=== PATIENT | female | born 1990 | race Caucasian/White ===

== ENCOUNTER → 2016-11-25 | Outpatient (CLI) | payer OTHER ==
--- NOTE | 2016-11-25 20:09 | US ---
EXAMINATION TYPE: US OB >= 14 wk fetus DATE OF EXAM: 11/25/2016 4:38 PM COMPARISON: 09/13/2016 CLINICAL HISTORY: screening of mother TECHNIQUE: Transabdominal (TA) GESTATIONAL AGE / DATING Physician Established: (27 weeks/6 days) EDC: 02/18/2017 per pt Dates by LMP: (27 weeks/6 days) EDC: 02/18/2017 Dates by First Scan: (27 weeks/3 days) EDC: 02/19/2017 Dates by Current Scan: (28 weeks/3 days) EDC: 02/14/2017 SURVEY IUP: Single PLACENTA: Anterior PREVIA: No Previa DINORAH: 19.4 cm Normal CERVICAL LENGTH (transabdominal: norm > 3.0cm): 3.7 cm BIOMETRY PRESENTATION: Vertex LIE: Longitudinal BPD: 7.4 cm 29 weeks / 4 days HC: 26.3 cm 28 weeks / 5 days AC: 24.5 cm 28 weeks / 5 days FL: 5.4 cm 28 weeks / 4 days ESTIMATED WEIGHT IN GRAMS: 1275 grams ESTIMATED WEIGHT IN LBS/OZS: 2 lbs. 13 oz. WEIGHT PERCENTAGE BASED ON ESTABLISHED DATES: 72% HC/AC: 1.1 FL/AC: 22 HEART RATE: 153 bpm RHYTHM: Normal Complete anatomy survey not performed. IMPRESSION: viable 28 weeks 3 days with an EDC of 02/14/2017
== END | disposition home or self-care (01) ==
LOC: RADUSWWP 15:59
PROVIDERS: ATTEND Obstetrics & Gynecology
DX: Z36 Encounter for antenatal screening of mother (principal)
CPT/HCPCS: 76805

== ENCOUNTER 2018-02-07 15:42 | Emergency (ER) | payer OTHER ==
--- NOTE | 2018-02-07 16:21 | ED ---
General Adult HPI - General Chief complaint: Chest Pain Stated complaint: Chest Pain Time Seen by Provider: 02/07/18 15:59 Source: patient, RN notes reviewed, old records reviewed Mode of arrival: wheelchair Limitations: no limitations - History of Present Illness Initial comments: This is a 19-year-old female to the ER for evaluation of chest pain today. Severe chest pain left-sided that occurred while holding her children earlier today. Patient has no specific medical history. She states she does have a strong family history of heart disease including cardiomyopathy. Patient states herself has also been told that she's had abnormal echo, viral infection with her heart or bacterial infection of her heart at some point, and muscle similar heart catheterization. Patient denies fever. Denies cough. Denies shortness of breath. Patient states the pain is been episodic but currently worse over last day - Related Data Home Medications Medication Instructions Recorded Confirmed Pedi Multivit No.25/Folic Acid 300 mcg PO DAILY 07/29/16 02/07/18 [Flintstones Multivit Chew Tab] Previous Rx's Medication Instructions Recorded Naproxen [Naprosyn] 500 mg PO Q12HR #30 tab 02/07/18 Allergies Allergy/AdvReac Type Severity Reaction Status Date / Time Penicillins Allergy Anaphylaxis Verified 02/07/18 16:08 Review of Systems ROS Statement: Those systems with pertinent positive or pertinent negative responses have been documented in the HPI. ROS Other: All systems not noted in ROS Statement are negative. Past Medical History Additional Past Medical History / Comment(s): IBS History of Any Multi-Drug Resistant Organisms: None Reported Past Surgical History: Section Additional Past Surgical History / Comment(s): IBS Past Psychological History: No Psychological Hx Reported Smoking Status: Current every day smoker Past Alcohol Use History: Rare Past Drug Use History: None Reported - Past Family History Sister(s) Additional Family Medical History / Comment(s): Sister with a history of hypertrophic cardiomyopathy General Exam Limitations: no limitations General appearance: alert, in no apparent distress Head exam: Present: atraumatic, normocephalic, normal inspection Eye exam: Present: normal appearance, PERRL, EOMI. Absent: scleral icterus, conjunctival injection, periorbital swelling ENT exam: Present: normal exam, mucous membranes moist Neck exam: Present: normal inspection. Absent: tenderness, meningismus, lymphadenopathy Respiratory exam: Present: normal lung sounds bilaterally. Absent: respiratory distress, wheezes, rales, rhonchi, stridor Cardiovascular Exam: Present: regular rate, normal rhythm, normal heart sounds. Absent: systolic murmur, diastolic murmur, rubs, gallop, clicks GI/Abdominal exam: Present: soft, normal bowel sounds. Absent: distended, tenderness, guarding, rebound, rigid Extremities exam: Present: normal inspection, full ROM, normal capillary refill. Absent: tenderness, pedal edema, joint swelling, calf tenderness Back exam: Present: normal inspection Neurological exam: Present: alert, oriented X3, CN II-XII intact Psychiatric exam: Present: normal affect, normal mood Skin exam: Present: warm, dry, intact, normal color. Absent: rash Course Vital Signs 02/07/18 02/07/18 02/07/18 15:54 16:33 18:14 Temperature 98.3 F 97.2 F L Pulse Rate 92 77 79 Respiratory 20 18 18 Rate Blood Pressure 124/72 133/73 113/61 O2 Sat by Pulse 99 100 99 Oximetry - Reevaluation(s) Reevaluation #1: Nonspecific chest pain is resolved EKG Findings - EKG Comments: EKG Findings:: EKG shows normal sinus rhythm rate of 81, NE 144, QRS 78, QTC 418 Medical Decision Making - Medical Decision Making 19 female the ER for evasive chest pain, patient is CT chest negative. Patient has normal EKG and normal troponin. Low risk heart disease. Patient can be discharged home - Lab Data Result diagrams: 02/07/18 16:46 02/07/18 16:46 Lab Results 02/07/18 02/07/18 02/07/18 Range/Units 16:46 16:46 16:46 WBC 8.9 (3.8-10.6) k/uL RBC 4.68 (3.80-5.40) m/uL Hgb 12.7 (11.4-16.0) gm/dL Hct 39.3 (34.0-46.0) % MCV 84.0 (80.0-100.0) fL MCH 27.2 (25.0-35.0) pg MCHC 32.4 (31.0-37.0) g/dL RDW 14.8 (11.5-15.5) % Plt Count 378 (150-450) k/uL Neutrophils % 65 % Lymphocytes % 22 % Monocytes % 7 % Eosinophils % 3 % Basophils % 1 % Neutrophils # 5.8 (1.3-7.7) k/uL Lymphocytes # 2.0 (1.0-4.8) k/uL Monocytes # 0.7 (0-1.0) k/uL Eosinophils # 0.2 (0-0.7) k/uL Basophils # 0.1 (0-0.2) k/uL PT (9.0-12.0) sec INR (<1.2) APTT (22.0-30.0) sec D-Dimer (<0.60) mg/L FEU Sodium 140 (137-145) mmol/L Potassium 4.3 (3.5-5.1) mmol/L Chloride 106 (98-107) mmol/L Carbon Dioxide 24 (22-30) mmol/L Anion Gap 10 mmol/L BUN 8 (7-17) mg/dL Creatinine 0.64 (0.52-1.04) mg/dL Est GFR (CKD-EPI)AfAm >90 (>60 ml/min/1.73 sqM) Est GFR (CKD-EPI)NonAf >90 (>60 ml/min/1.73 sqM) Glucose 85 (74-99) mg/dL Calcium 9.5 (8.4-10.2) mg/dL Magnesium 2.0 (1.6-2.3) mg/dL Total Bilirubin 0.4 (0.2-1.3) mg/dL AST 22 (14-36) U/L ALT 27 (9-52) U/L Alkaline Phosphatase 74 (38-126) U/L Total Creatine Kinase 61 (30-135) U/L CK-MB (CK-2) 0.3 (0.0-2.4) ng/mL CK-MB (CK-2) Rel Index 0.5 Troponin I <0.012 (0.000-0.034) ng/mL NT-Pro-B Natriuret Pep pg/mL Total Protein 7.5 (6.3-8.2) g/dL Albumin 4.4 (3.5-5.0) g/dL Lipase 87 (23-300) U/L 02/07/18 02/07/18 Range/Units 16:46 16:46 WBC (3.8-10.6) k/uL RBC (3.80-5.40) m/uL Hgb (11.4-16.0) gm/dL Hct (34.0-46.0) % MCV (80.0-100.0) fL MCH (25.0-35.0) pg MCHC (31.0-37.0) g/dL RDW (11.5-15.5) % Plt Count (150-450) k/uL Neutrophils % % Lymphocytes % % Monocytes % % Eosinophils % % Basophils % % Neutrophils # (1.3-7.7) k/uL Lymphocytes # (1.0-4.8) k/uL Monocytes # (0-1.0) k/uL Eosinophils # (0-0.7) k/uL Basophils # (0-0.2) k/uL PT 10.4 (9.0-12.0) sec INR 1.1 (<1.2) APTT 22.9 (22.0-30.0) sec D-Dimer 0.30 (<0.60) mg/L FEU Sodium (137-145) mmol/L Potassium (3.5-5.1) mmol/L Chloride (98-107) mmol/L Carbon Dioxide (22-30) mmol/L Anion Gap mmol/L BUN (7-17) mg/dL Creatinine (0.52-1.04) mg/dL Est GFR (CKD-EPI)AfAm (>60 ml/min/1.73 sqM) Est GFR (CKD-EPI)NonAf (>60 ml/min/1.73 sqM) Glucose (74-99) mg/dL Calcium (8.4-10.2) mg/dL Magnesium (1.6-2.3) mg/dL Total Bilirubin (0.2-1.3) mg/dL AST (14-36) U/L ALT (9-52) U/L Alkaline Phosphatase (38-126) U/L Total Creatine Kinase (30-135) U/L CK-MB (CK-2) (0.0-2.4) ng/mL CK-MB (CK-2) Rel Index Troponin I (0.000-0.034) ng/mL NT-Pro-B Natriuret Pep 11 pg/mL Total Protein (6.3-8.2) g/dL Albumin (3.5-5.0) g/dL Lipase (23-300) U/L - Radiology Data Radiology results: report reviewed (CTA chest negative for acute disease), image reviewed Disposition Clinical Impression: Chest pain Disposition: HOME SELF-CARE Condition: Good Instructions: Chest Pain (ED) Prescriptions: Naproxen [Naprosyn] 500 mg PO Q12HR #30 tab Referrals: Natalia Busch MD [Primary Care Provider] - 1-2 days
--- NOTE | 2018-02-07 16:21 | XR ---
EXAMINATION TYPE: XR chest 2V DATE OF EXAM: 02/07/2018 COMPARISON: Prior chest x-ray 02/12/2016 HISTORY: Chest pain TECHNIQUE: Frontal and lateral views of the chest are obtained. FINDINGS: There is no focal air space opacity, pleural effusion, or pneumothorax seen. The cardiac silhouette size is within normal limits. There is a slight spinal curvature. The osseous structures are intact. IMPRESSION: No acute cardiopulmonary process.
[2018-02-07] MEDS ORDERED: KETOROLAC 30 MG/ML 1 ML VIAL IVP STA (16:31)
[2018-02-07] MEDS ORDERED: SODIUM CHLORIDE 0.9% 1,000 ML IV STA (16:31)
[2018-02-07] MEDS ORDERED: RX INFO: IV CONTRAST WAS GIVEN 1 EACH MISC MISCELLANE PRN (16:31)
[2018-02-07] MEDS ORDERED: SODIUM CHLORIDE 0.9% 500 ML IV STA (16:31)
[2018-02-07 16:35] VITALS: RESP 18
[2018-02-07 16:58] LABS: Basophils # (A) 0.1 k/uL (0-0.2); Basophils % (A) 1 %; Eosinophils # (A) 0.2 k/uL (0-0.7); Eosinophils % (A) 3 %; HCT 39.3 % (34.0-46.0); HGB 12.7 gm/dL (11.4-16.0); Lymphocytes % (A) 22 %; MCH 27.2 pg (25.0-35.0); MCHC 32.4 g/dL (31.0-37.0); Mean Platelet Volume 7.2; Monocytes # (A) 0.7 k/uL (0-1.0); Monocytes % (A) 7 %; Neutrophils # (A) 5.8 k/uL (1.3-7.7); Neutrophils % (A) 65 %; Platelet Count 378 k/uL (150-450); RBC 4.68 m/uL (3.80-5.40); RDW 14.8 % (11.5-15.5); WBC 8.9 k/uL (3.8-10.6)
[2018-02-07 17:03] LABS: D-Dimer 0.3 mg/L FEU (<0.60)
[2018-02-07 17:07] LABS: INR 1.1 (<1.2); Partial Thromboplastin Time 22.9 sec (22.0-30.0); Prothrombin Time 10.4 sec (9.0-12.0)
[2018-02-07 17:14] LABS: Creatine Kinase 61 U/L (30-135)
[2018-02-07 17:17] LABS: ALT 27 U/L (9-52); AST 22 U/L (14-36); Albumin 4.4 g/dL (3.5-5.0); Alkaline Phosphatase 74 U/L (38-126); Anion Gap 10 mmol/L; Blood Urea Nitrogen 8 mg/dL (7-17); Calcium 9.5 mg/dL (8.4-10.2); Carbon Dioxide 24 mmol/L (22-30); Chloride 106 mmol/L (98-107); Glucose 85 mg/dL (74-99); Lipase 87 U/L (23-300); Potassium 4.3 mmol/L (3.5-5.1); Sodium 140 mmol/L (137-145); Total Bilirubin 0.4 mg/dL (0.2-1.3); Total Protein 7.5 g/dL (6.3-8.2)
[2018-02-07 17:27] LABS: Creatine Kinase MB 0.3 ng/mL (0.0-2.4); Troponin I <0.012 ng/mL (0.000-0.034)
--- NOTE | 2018-02-07 17:55 | CT ---
EXAMINATION TYPE: CT angio chest DATE OF EXAM: 02/07/2018 COMPARISON: NONE HISTORY: Chest pain CT DLP: 419.3 mGycm. Automated Exposure Control for Dose Reduction was Utilized. CONTRAST: CTA scan of the thorax is performed with IV Contrast, patient injected with 63 mL of Omnipaque 350, p ulmonary embolism protocol. MIP Images are created on CT scanner and reviewed. FINDINGS: LUNGS: There is dependent subsegmental atelectasis seen bilaterally. The lungs are grossly clear, the re is no concerning parenchymal mass or nodule identified. There is no pleural effusion or pneumoth orax seen. The tracheobronchial tree is patent. MEDIASTINUM: There is satisfactory enhancement of the pulmonary artery and its branches, there is no CT evidence for pulmonary embolism. There are no greater than 1 cm hilar or mediastinal lymph nodes. No cardiomegaly or pericardial effusion is seen. IMPRESSION: 1. No evidence of pulmonary embolus. 2. No focal airspace disease to suggest pneumonia. 3. Dependent subsegmental atelectasis.
[2018-02-07 18:15] VITALS: BP 113/61; PULSE 79; TEMP 97.2
== END 2018-02-07 18:15 | disposition home or self-care (01) ==
LOC: EC 15:42
DX: R07.9 Chest pain, unspecified (principal); F17.200 Nicotine dependence, unspecified, uncomplicated; Z88.0 Allergy status to penicillin
CPT/HCPCS: 36415; 93005; 85379; 83880; 80053; 82550; 82553; 83690; 83735; 84484; 85025; 85610; 85730; 71046; 71275; 99285; 96374; 96361; Q9967; J1885

== ENCOUNTER 2018-06-07 15:25 | Emergency (ER) | payer OTHER ==
[2018-06-07 15:40] VITALS: RESP 18
--- NOTE | 2018-06-07 15:58 | ED ---
General Adult HPI - General Chief complaint: Chest Pain Stated complaint: Chest pain Time Seen by Provider: 06/07/18 15:48 Source: patient, RN notes reviewed, old records reviewed Mode of arrival: ambulatory Limitations: no limitations - History of Present Illness Initial comments: 28 female presenting for evaluation of chest pain. Patient has left-sided chest pain which she describes as heaviness accompanied by intermittent sharp chest pain to her left shoulder and left arm. Patient states her symptoms have been ongoing for the past 10 years. She's been seen by her primary care physician and seen in the emergency department on multiple occasions. She was recently told by her primary care physician that if her symptoms worsen to come to the emergency department. She has remote "infection around her heart" when she was 17 years old. She states her symptoms have been present since this time. Denies dyspnea. Denies fever or chills. No abdominal pain, no nausea vomiting or diarrhea. Patient has baseline chest pain at all times with intermittent episodes of worsening. - Related Data Home Medications Medication Instructions Recorded Confirmed Ibuprofen [Motrin Ib] 400 mg PO Q6H PRN 06/07/18 06/07/18 Allergies Allergy/AdvReac Type Severity Reaction Status Date / Time Penicillins Allergy Anaphylaxis Verified 06/07/18 16:16 Review of Systems ROS Statement: Those systems with pertinent positive or pertinent negative responses have been documented in the HPI. ROS Other: All systems not noted in ROS Statement are negative. Past Medical History Additional Past Medical History / Comment(s): IBS History of Any Multi-Drug Resistant Organisms: None Reported Past Surgical History: Section Additional Past Surgical History / Comment(s): IBS Past Psychological History: No Psychological Hx Reported Smoking Status: Current every day smoker Past Alcohol Use History: Occasional Past Drug Use History: None Reported - Past Family History Sister(s) Additional Family Medical History / Comment(s): Sister with a history of hypertrophic cardiomyopathy General Exam Limitations: no limitations General appearance: alert, in no apparent distress Head exam: Present: atraumatic, normocephalic Eye exam: Present: normal appearance, PERRL, EOMI ENT exam: Present: normal exam Neck exam: Present: normal inspection. Absent: tenderness, meningismus Respiratory exam: Present: normal lung sounds bilaterally. Absent: respiratory distress Cardiovascular Exam: Present: regular rate, normal rhythm GI/Abdominal exam: Present: soft. Absent: distended, tenderness Extremities exam: Present: normal inspection, normal capillary refill, other ( Distal pulses intact). Absent: pedal edema, calf tenderness Neurological exam: Present: alert, oriented X3, CN II-XII intact. Absent: motor sensory deficit Psychiatric exam: Present: normal affect, normal mood Skin exam: Present: warm, dry, intact. Absent: cyanosis, diaphoretic Course Vital Signs 06/07/18 15:38 Temperature 98.5 F Pulse Rate 92 Respiratory 18 Rate Blood Pressure 106/66 O2 Sat by Pulse 100 Oximetry EKG Findings - EKG Comments: EKG Findings:: EKG normal sinus rhythm, cannot rule out anterior infarct age undetermined, rate of 87, NC interval 136, QRS duration 72, QTC 440 Medical Decision Making - Medical Decision Making 28-year-old female with baseline chest pain presents for evaluation. This is a chronic issue she's had these symptoms for the past 11 years. EKG shows no acute signs of ischemia, chest x-ray is obtained which is negative for acute cardiopulmonary disease. Patient follows with her primary care physician. CBC CMP are unremarkable. D-dimer and troponin are negative. Patient is given outpatient cardiology follow-up given the duration of her symptoms. She will follow-up as soon as possible and return with worsening or changing symptoms. - Lab Data Result diagrams: 06/07/18 16:00 06/07/18 16:00 Lab Results 06/07/18 06/07/18 06/07/18 Range/Units 16:00 16:00 16:00 WBC 7.7 (3.8-10.6) k/uL RBC 4.28 (3.80-5.40) m/uL Hgb 11.2 L (11.4-16.0) gm/dL Hct 35.2 (34.0-46.0) % MCV 82.2 (80.0-100.0) fL MCH 26.1 (25.0-35.0) pg MCHC 31.7 (31.0-37.0) g/dL RDW 15.6 H (11.5-15.5) % Plt Count 270 (150-450) k/uL Neutrophils % 62 % Lymphocytes % 24 % Monocytes % 9 % Eosinophils % 2 % Basophils % 0 % Neutrophils # 4.7 (1.3-7.7) k/uL Lymphocytes # 1.9 (1.0-4.8) k/uL Monocytes # 0.7 (0-1.0) k/uL Eosinophils # 0.2 (0-0.7) k/uL Basophils # 0.0 (0-0.2) k/uL PT (9.0-12.0) sec INR (<1.2) APTT (22.0-30.0) sec D-Dimer (<0.60) mg/L FEU Sodium 138 (137-145) mmol/L Potassium 4.0 (3.5-5.1) mmol/L Chloride 108 H (98-107) mmol/L Carbon Dioxide 23 (22-30) mmol/L Anion Gap 7 mmol/L BUN 11 (7-17) mg/dL Creatinine 0.83 (0.52-1.04) mg/dL Est GFR (CKD-EPI)AfAm >90 (>60 ml/min/1.73 sqM) Est GFR (CKD-EPI)NonAf >90 (>60 ml/min/1.73 sqM) Glucose 86 (74-99) mg/dL Calcium 8.8 (8.4-10.2) mg/dL Magnesium 2.0 (1.6-2.3) mg/dL Total Bilirubin 0.2 (0.2-1.3) mg/dL AST 16 (14-36) U/L ALT 30 (9-52) U/L Alkaline Phosphatase 48 (38-126) U/L Total Creatine Kinase 89 (30-135) U/L CK-MB (CK-2) 0.4 (0.0-2.4) ng/mL CK-MB (CK-2) Rel Index 0.4 Troponin I <0.012 (0.000-0.034) ng/mL Total Protein 6.0 L (6.3-8.2) g/dL Albumin 3.8 (3.5-5.0) g/dL Urine Color Urine Appearance (Clear) Urine pH (5.0-8.0) Ur Specific [place] (1.001-1.035) Urine Protein (Negative) Urine Glucose (UA) (Negative) Urine Ketones (Negative) Urine Blood (Negative) Urine Nitrite (Negative) Urine Bilirubin (Negative) Urine Urobilinogen (<2.0) mg/dL Ur Leukocyte Esterase (Negative) Urine HCG, Qual (Not Detectd) 06/07/18 06/07/18 06/07/18 Range/Units 16:00 16:00 16:00 WBC (3.8-10.6) k/uL RBC (3.80-5.40) m/uL Hgb (11.4-16.0) gm/dL Hct (34.0-46.0) % MCV (80.0-100.0) fL MCH (25.0-35.0) pg MCHC (31.0-37.0) g/dL RDW (11.5-15.5) % Plt Count (150-450) k/uL Neutrophils % % Lymphocytes % % Monocytes % % Eosinophils % % Basophils % % Neutrophils # (1.3-7.7) k/uL Lymphocytes # (1.0-4.8) k/uL Monocytes # (0-1.0) k/uL Eosinophils # (0-0.7) k/uL Basophils # (0-0.2) k/uL PT 10.8 (9.0-12.0) sec INR 1.1 (<1.2) APTT 22.6 (22.0-30.0) sec D-Dimer 0.39 (<0.60) mg/L FEU Sodium (137-145) mmol/L Potassium (3.5-5.1) mmol/L Chloride (98-107) mmol/L Carbon Dioxide (22-30) mmol/L Anion Gap mmol/L BUN (7-17) mg/dL Creatinine (0.52-1.04) mg/dL Est GFR (CKD-EPI)AfAm (>60 ml/min/1.73 sqM) Est GFR (CKD-EPI)NonAf (>60 ml/min/1.73 sqM) Glucose (74-99) mg/dL Calcium (8.4-10.2) mg/dL Magnesium (1.6-2.3) mg/dL Total Bilirubin (0.2-1.3) mg/dL AST (14-36) U/L ALT (9-52) U/L Alkaline Phosphatase (38-126) U/L Total Creatine Kinase (30-135) U/L CK-MB (CK-2) (0.0-2.4) ng/mL CK-MB (CK-2) Rel Index Troponin I (0.000-0.034) ng/mL Total Protein (6.3-8.2) g/dL Albumin (3.5-5.0) g/dL Urine Color Yellow Urine Appearance Clear (Clear) Urine pH 6.5 (5.0-8.0) Ur Specific [place] 1.012 (1.001-1.035) Urine Protein Negative (Negative) Urine Glucose (UA) Negative (Negative) Urine Ketones Negative (Negative) Urine Blood Negative (Negative) Urine Nitrite Negative (Negative) Urine Bilirubin Negative (Negative) Urine Urobilinogen <2.0 (<2.0) mg/dL Ur Leukocyte Esterase Negative (Negative) Urine HCG, Qual Not Detected (Not Detectd) Disposition Clinical Impression: Chest pain Disposition: HOME SELF-CARE Condition: Good Instructions: Chest Pain (ED) Is patient prescribed a controlled substance at d/c from ED?: No Referrals: Natalia Busch MD [Primary Care Provider] - 1-2 days Kendall Ferro MD [STAFF PHYSICIAN] - 1-2 days Time of Disposition: 17:16
[2018-06-07 16:23] LABS: Appearance,Urine Clear (Clear); Basophils % (A) 0 %; Bilirubin,Urine Negative (Negative); Blood,Urine Negative (Negative); Color,Urine Yellow; Eosinophils # (A) 0.2 k/uL (0-0.7); Eosinophils % (A) 2 %; Glucose,Urine (UA) Negative (Negative); HCT 35.2 % (34.0-46.0); HGB 11.2 gm/dL (11.4-16.0); Ketones,Urine Negative (Negative); Leukocyte Esterase,Urine Negative (Negative); Lymphocytes # (A) 1.9 k/uL (1.0-4.8); Lymphocytes % (A) 24 %; MCH 26.1 pg (25.0-35.0); MCHC 31.7 g/dL (31.0-37.0); MCV 82.2 fL (80.0-100.0); Mean Platelet Volume 7.6; Monocytes # (A) 0.7 k/uL (0-1.0); Monocytes % (A) 9 %; Neutrophils # (A) 4.7 k/uL (1.3-7.7); Neutrophils % (A) 62 %; Nitrite,Urine Negative (Negative); PH, Urine 6.5 (5.0-8.0); Platelet Count 270 k/uL (150-450); Protein,Urine Negative (Negative); RBC 4.28 m/uL (3.80-5.40); RDW 15.6 % (11.5-15.5); Specific Gravity,Urine 1.012 (1.001-1.035); Urobilinogen,Urine <2.0 mg/dL (<2.0); WBC 7.7 k/uL (3.8-10.6)
[2018-06-07 16:34] LABS: ALT 30 U/L (9-52); AST 16 U/L (14-36); Albumin 3.8 g/dL (3.5-5.0); Alkaline Phosphatase 48 U/L (38-126); Anion Gap 7 mmol/L; Blood Urea Nitrogen 11 mg/dL (7-17); Calcium 8.8 mg/dL (8.4-10.2); Carbon Dioxide 23 mmol/L (22-30); Chloride 108 mmol/L (98-107); Glucose 86 mg/dL (74-99); Sodium 138 mmol/L (137-145); Total Bilirubin 0.2 mg/dL (0.2-1.3)
--- NOTE | 2018-06-07 16:34 | XR ---
EXAMINATION TYPE: XR chest 2V DATE OF EXAM: 06/07/2018 COMPARISON: Chest x-ray and CTA chest February 07, 2018 HISTORY: Intermittent chest pain worse today. TECHNIQUE: Frontal and lateral views of the chest are obtained. FINDINGS: There is no focal air space opacity, pleural effusion, or pneumothorax seen. The cardiac silhouette size is within normal limits. Slight scoliotic curvature is redemonstrated. IMPRESSION: No acute cardiopulmonary process. No significant change from prior studies.
[2018-06-07 16:39] LABS: D-Dimer 0.39 mg/L FEU (<0.60); INR 1.1 (<1.2); Partial Thromboplastin Time 22.6 sec (22.0-30.0); Prothrombin Time 10.8 sec (9.0-12.0)
[2018-06-07 16:50] LABS: Creatine Kinase 89 U/L (30-135)
[2018-06-07 17:03] LABS: Creatine Kinase MB 0.4 ng/mL (0.0-2.4); Troponin I <0.012 ng/mL (0.000-0.034)
[2018-06-07 18:03] VITALS: BP 109/58; PULSE 75; TEMP 97.6
== END 2018-06-07 18:03 | disposition home or self-care (01) ==
LOC: EC 15:25
DX: R07.9 Chest pain, unspecified (principal); F17.200 Nicotine dependence, unspecified, uncomplicated; Z88.0 Allergy status to penicillin
CPT/HCPCS: 36415; 71046; 80053; 81003; 81025; 82550; 82553; 83735; 84484; 85025; 85379; 85610; 85730; 93005; 99285

== ENCOUNTER 2018-11-25 17:24 | Emergency (ER) | payer OTHER ==
[2018-11-25] MEDS ORDERED: diphenhydrAMINE 50 MG/ML 1 ML VIAL IVP STA (17:50)
[2018-11-25] MEDS ORDERED: KETOROLAC 30 MG/ML 1 ML VIAL IVP STA (17:50)
[2018-11-25] MEDS ORDERED: ONDANSETRON 4 MG/2 ML VIAL IVP STA (17:50)
[2018-11-25] MEDS ORDERED: SODIUM CHLORIDE 0.9% 1,000 ML IV STA (17:50)
[2018-11-25] MEDS ORDERED: PANTOPRAZOLE 40 MG/10 ML VIAL IVP STA (17:50)
[2018-11-25 18:53] VITALS: RESP 16
[2018-11-25 19:04] LABS: Basophils % (A) 0 %; Eosinophils # (A) 0.1 k/uL (0-0.7); Eosinophils % (A) 2 %; HCT 34.8 % (34.0-46.0); HGB 10.9 gm/dL (11.4-16.0); Hypochromasia Slight; Lymphocytes # (A) 1.3 k/uL (1.0-4.8); Lymphocytes % (A) 24 %; MCH 26.1 pg (25.0-35.0); MCHC 31.2 g/dL (31.0-37.0); MCV 83.7 fL (80.0-100.0); Mean Platelet Volume 6.9; Monocytes # (A) 0.5 k/uL (0-1.0); Monocytes % (A) 8 %; Neutrophils # (A) 3.5 k/uL (1.3-7.7); Neutrophils % (A) 62 %; Platelet Count 285 k/uL (150-450); RBC 4.16 m/uL (3.80-5.40); RDW 15.6 % (11.5-15.5); WBC 5.7 k/uL (3.8-10.6)
--- NOTE | 2018-11-25 19:11 | ED ---
Nausea/Vomiting/Diarrhea HPI - General Chief complaint: Nausea/Vomiting/Diarrhea Stated complaint: NVD Time Seen by Provider: 11/25/18 17:41 Source: patient, RN notes reviewed Mode of arrival: ambulatory Limitations: no limitations - History of Present Illness Initial comments: 28-year-old female presents emergency Department chief complaint of not feeling well. Patient states that she has had some cold-like symptoms along with nausea vomiting. Patient complains of some mild abdominal discomfort primarily in her flank region. Patient denies any known fever but states that she's felt like she's had a fever at home. Patient denies any dysuria or hematuria. Denies any chance of . Patient states she's had slight nasal congestion she's had sick contacts with some her symptoms. - Related Data Home Medications Medication Instructions Recorded Confirmed Ibuprofen [Motrin Ib] 400 mg PO Q6H PRN 06/07/18 11/25/18 Previous Rx's Medication Instructions Recorded Ondansetron Odt [Zofran Odt] 4 mg PO Q8HR PRN #10 tab 11/25/18 Allergies Allergy/AdvReac Type Severity Reaction Status Date / Time Penicillins Allergy Anaphylaxis Verified 11/25/18 17:47 Review of Systems ROS Statement: Those systems with pertinent positive or pertinent negative responses have been documented in the HPI. ROS Other: All systems not noted in ROS Statement are negative. Past Medical History Additional Past Medical History / Comment(s): IBS History of Any Multi-Drug Resistant Organisms: None Reported Past Surgical History: Section Additional Past Surgical History / Comment(s): IBS Past Psychological History: No Psychological Hx Reported Smoking Status: Current every day smoker Past Alcohol Use History: Occasional Past Drug Use History: None Reported - Past Family History Sister(s) Additional Family Medical History / Comment(s): Sister with a history of hypertrophic cardiomyopathy General Exam Limitations: no limitations General appearance: alert, in no apparent distress Head exam: Present: atraumatic, normocephalic, normal inspection Eye exam: Present: normal appearance, PERRL, EOMI. Absent: scleral icterus, conjunctival injection, periorbital swelling ENT exam: Present: normal exam, normal oropharynx, mucous membranes moist, TM's normal bilaterally Neck exam: Present: normal inspection, full ROM. Absent: tenderness, meningismus, lymphadenopathy Respiratory exam: Present: normal lung sounds bilaterally. Absent: respiratory distress, wheezes, rales, rhonchi, stridor Cardiovascular Exam: Present: regular rate, normal rhythm, normal heart sounds. Absent: systolic murmur, diastolic murmur, rubs, gallop, clicks GI/Abdominal exam: Present: soft, tenderness (Mild diffuse), normal bowel sounds. Absent: distended, guarding, rebound, rigid Back exam: Absent: CVA tenderness (R), CVA tenderness (L) Neurological exam: Present: alert, oriented X3, CN II-XII intact Skin exam: Present: warm, dry, intact, normal color. Absent: rash Course Vital Signs 11/25/18 11/25/18 17:33 18:51 Temperature 98.8 F Pulse Rate 98 82 Respiratory 18 16 Rate Blood Pressure 108/73 102/49 O2 Sat by Pulse 99 100 Oximetry Medical Decision Making - Medical Decision Making 19-year-old female presented from for multiple complaints. Patient lab work, urinalysis. Pending is unremarkable at this time she was hydrated given antiemetics and she does feel improved. Patient has viral syndrome. Patient will be discharged and return parameters were discussed. - Lab Data Result diagrams: 11/25/18 18:40 11/25/18 18:40 Lab Results 11/25/18 11/25/18 11/25/18 Range/Units 18:40 18:40 18:40 WBC 5.7 (3.8-10.6) k/uL RBC 4.16 (3.80-5.40) m/uL Hgb 10.9 L (11.4-16.0) gm/dL Hct 34.8 (34.0-46.0) % MCV 83.7 (80.0-100.0) fL MCH 26.1 (25.0-35.0) pg MCHC 31.2 (31.0-37.0) g/dL RDW 15.6 H (11.5-15.5) % Plt Count 285 (150-450) k/uL Neutrophils % 62 % Lymphocytes % 24 % Monocytes % 8 % Eosinophils % 2 % Basophils % 0 % Neutrophils # 3.5 (1.3-7.7) k/uL Lymphocytes # 1.3 (1.0-4.8) k/uL Monocytes # 0.5 (0-1.0) k/uL Eosinophils # 0.1 (0-0.7) k/uL Basophils # 0.0 (0-0.2) k/uL Hypochromasia Slight Sodium 138 (137-145) mmol/L Potassium 4.0 (3.5-5.1) mmol/L Chloride 109 H (98-107) mmol/L Carbon Dioxide 23 (22-30) mmol/L Anion Gap 6 mmol/L BUN 8 (7-17) mg/dL Creatinine 0.75 (0.52-1.04) mg/dL Est GFR (CKD-EPI)AfAm >90 (>60 ml/min/1.73 sqM) Est GFR (CKD-EPI)NonAf >90 (>60 ml/min/1.73 sqM) Glucose 97 (74-99) mg/dL Calcium 8.5 (8.4-10.2) mg/dL Total Bilirubin 0.3 (0.2-1.3) mg/dL AST 16 (14-36) U/L ALT 31 (9-52) U/L Alkaline Phosphatase 59 (38-126) U/L Total Protein 6.3 (6.3-8.2) g/dL Albumin 3.5 (3.5-5.0) g/dL Amylase 55 (30-110) U/L Lipase 87 (23-300) U/L Urine Color Yellow Urine Appearance Cloudy H (Clear) Urine pH 6.0 (5.0-8.0) Ur Specific [place] 1.013 (1.001-1.035) Urine Protein Negative (Negative) Urine Glucose (UA) Negative (Negative) Urine Ketones Negative (Negative) Urine Blood Negative (Negative) Urine Nitrite Negative (Negative) Urine Bilirubin Negative (Negative) Urine Urobilinogen 2.0 (<2.0) mg/dL Ur Leukocyte Esterase Moderate H (Negative) Urine RBC 3 (0-5) /hpf Urine WBC 5 (0-5) /hpf Ur Squamous Epith Cells 14 H (0-4) /hpf Urine Mucus Few H (None) /hpf Urine HCG, Qual (Not Detectd) 11/25/18 Range/Units 18:40 WBC (3.8-10.6) k/uL RBC (3.80-5.40) m/uL Hgb (11.4-16.0) gm/dL Hct (34.0-46.0) % MCV (80.0-100.0) fL MCH (25.0-35.0) pg MCHC (31.0-37.0) g/dL RDW (11.5-15.5) % Plt Count (150-450) k/uL Neutrophils % % Lymphocytes % % Monocytes % % Eosinophils % % Basophils % % Neutrophils # (1.3-7.7) k/uL Lymphocytes # (1.0-4.8) k/uL Monocytes # (0-1.0) k/uL Eosinophils # (0-0.7) k/uL Basophils # (0-0.2) k/uL Hypochromasia Sodium (137-145) mmol/L Potassium (3.5-5.1) mmol/L Chloride (98-107) mmol/L Carbon Dioxide (22-30) mmol/L Anion Gap mmol/L BUN (7-17) mg/dL Creatinine (0.52-1.04) mg/dL Est GFR (CKD-EPI)AfAm (>60 ml/min/1.73 sqM) Est GFR (CKD-EPI)NonAf (>60 ml/min/1.73 sqM) Glucose (74-99) mg/dL Calcium (8.4-10.2) mg/dL Total Bilirubin (0.2-1.3) mg/dL AST (14-36) U/L ALT (9-52) U/L Alkaline Phosphatase (38-126) U/L Total Protein (6.3-8.2) g/dL Albumin (3.5-5.0) g/dL Amylase (30-110) U/L Lipase (23-300) U/L Urine Color Urine Appearance (Clear) Urine pH (5.0-8.0) Ur Specific [place] (1.001-1.035) Urine Protein (Negative) Urine Glucose (UA) (Negative) Urine Ketones (Negative) Urine Blood (Negative) Urine Nitrite (Negative) Urine Bilirubin (Negative) Urine Urobilinogen (<2.0) mg/dL Ur Leukocyte Esterase (Negative) Urine RBC (0-5) /hpf Urine WBC (0-5) /hpf Ur Squamous Epith Cells (0-4) /hpf Urine Mucus (None) /hpf Urine HCG, Qual Not Detected (Not Detectd) Disposition Clinical Impression: Nausea vomiting and diarrhea, Viral syndrome Disposition: HOME SELF-CARE Condition: Stable Instructions: Acute Nausea and Vomiting (ED), Acute Diarrhea (ED) Additional Instructions: Please return to the Emergency Department if symptoms worsen or any other concerns. Prescriptions: Ondansetron Odt [Zofran Odt] 4 mg PO Q8HR PRN #10 tab PRN Reason: Nausea Is patient prescribed a controlled substance at d/c from ED?: No Referrals: Natalia Busch MD [Primary Care Provider] - 1-2 days Time of Disposition: 19:36
[2018-11-25 19:12] LABS: Appearance,Urine Cloudy (Clear); Bilirubin,Urine Negative (Negative); Blood,Urine Negative (Negative); Color,Urine Yellow; Glucose,Urine (UA) Negative (Negative); Ketones,Urine Negative (Negative); Leukocyte Esterase,Urine Moderate (Negative); Mucus,Urine Few /hpf; Nitrite,Urine Negative (Negative); Protein,Urine Negative (Negative); RBC,Urine 3 /hpf (0-5); Specific Gravity,Urine 1.013 (1.001-1.035); Squamous Epithelial Cell,Urine 14 /hpf (0-4); WBC,Urine 5 /hpf (0-5)
[2018-11-25 19:14] LABS: ALT 31 U/L (9-52); AST 16 U/L (14-36); Albumin 3.5 g/dL (3.5-5.0); Alkaline Phosphatase 59 U/L (38-126); Amylase 55 U/L (30-110); Anion Gap 6 mmol/L; Blood Urea Nitrogen 8 mg/dL (7-17); Calcium 8.5 mg/dL (8.4-10.2); Carbon Dioxide 23 mmol/L (22-30); Chloride 109 mmol/L (98-107); Glucose 97 mg/dL (74-99); Lipase 87 U/L (23-300); Sodium 138 mmol/L (137-145); Total Bilirubin 0.3 mg/dL (0.2-1.3); Total Protein 6.3 g/dL (6.3-8.2)
[2018-11-25 20:00] VITALS: BP 100/59; PULSE 79; TEMP 98.9
== END 2018-11-25 19:57 | disposition home or self-care (01) ==
LOC: EC 17:24
DX: B34.9 Viral infection, unspecified (principal); F17.200 Nicotine dependence, unspecified, uncomplicated; Z87.19 Personal history of other diseases of the digestive system; Z88.0 Allergy status to penicillin
CPT/HCPCS: 99284 ×2; 96374 ×2; 96375 ×4; 96361 ×2; 36415; 80053; 82150; 83690; 85025; 81001; 81025; J1200; J2405; J1885; C9113

== ENCOUNTER 2019-02-26 11:41 | Emergency (ER) | payer OTHER ==
[2019-02-26] MEDS ORDERED: SODIUM CHLORIDE 0.9% 1,000 ML IV STA (12:35)
[2019-02-26 12:53] LABS: Anisocytosis Slight; Basophils % (A) 0 %; Eosinophils % (A) 1 %; HCT 36.2 % (34.0-46.0); HGB 11.9 gm/dL (11.4-16.0); Lymphocytes # (A) 0.9 k/uL (1.0-4.8); Lymphocytes % (A) 17 %; MCH 25.5 pg (25.0-35.0); MCHC 32.8 g/dL (31.0-37.0); MCV 77.7 fL (80.0-100.0); Microcytosis Slight; Monocytes # (A) 0.4 k/uL (0-1.0); Monocytes % (A) 7 %; Neutrophils # (A) 3.8 k/uL (1.3-7.7); Neutrophils % (A) 73 %; Platelet Count 225 k/uL (150-450); RBC 4.66 m/uL (3.80-5.40); RDW 16.4 % (11.5-15.5); WBC 5.2 k/uL (3.8-10.6)
[2019-02-26 12:59] LABS: Appearance,Urine Cloudy (Clear); Bacteria,Urine Rare /hpf; Bilirubin,Urine Negative (Negative); Blood,Urine Negative (Negative); Color,Urine Yellow; Glucose,Urine (UA) Negative (Negative); Ketones,Urine Negative (Negative); Leukocyte Esterase,Urine Moderate (Negative); Mucus,Urine Rare /hpf; Nitrite,Urine Negative (Negative); Protein,Urine Negative (Negative); RBC,Urine 1 /hpf (0-5); Specific Gravity,Urine 1.016 (1.001-1.035); Squamous Epithelial Cell,Urine 5 /hpf (0-4); WBC,Urine 3 /hpf (0-5)
[2019-02-26 13:03] LABS: ALT 23 U/L (9-52); AST 15 U/L (14-36); Alkaline Phosphatase 75 U/L (38-126); Amylase 56 U/L (30-110); Anion Gap 9 mmol/L; Blood Urea Nitrogen 7 mg/dL (7-17); Calcium 9.1 mg/dL (8.4-10.2); Carbon Dioxide 22 mmol/L (22-30); Chloride 106 mmol/L (98-107); Glucose 82 mg/dL (74-99); Lipase 67 U/L (23-300); Potassium 3.9 mmol/L (3.5-5.1); Sodium 137 mmol/L (137-145); Total Bilirubin 0.4 mg/dL (0.2-1.3); Total Protein 6.9 g/dL (6.3-8.2)
[2019-02-26] MEDS ORDERED: ONDANSETRON 4 MG/2 ML VIAL IVP STA (13:19)
--- NOTE | 2019-02-26 13:50 | ED ---
Abdominal Pain HPI - General Chief Complaint: Abdominal Pain Stated Complaint: rt sided abd pain Time Seen by Provider: 02/26/19 12:09 Source: patient, RN notes reviewed, old records reviewed Mode of arrival: ambulatory - History of Present Illness Initial Comments: This is a 28-year-old female the ER for evaluation. This patient presents today for evaluation regards to bowel pain. Right lower quadrant bowel pain. Patient has history of kidney stones concern for appendicitis today. Positive nausea vomiting no fevers. No dysuria no difficulty with bowel movements. No recent travel history no sick contacts no pharyngeal similar complaint. No prior surgical history MD Complaint: abdominal pain (RLQ) -: days(s) Location: RLQ, suprapubic Radiation: RLQ, suprapubic Migration to: RLQ Severity: mild Severity scale (1-10): 2 Quality: aching Consistency: constant Improves With: nothing Worsens With: nothing Associated Symptoms: nausea, vomiting - Related Data Home Medications Medication Instructions Recorded Confirmed Ibuprofen [Motrin Ib] 400 mg PO Q6H PRN 06/07/18 11/25/18 Previous Rx's Medication Instructions Recorded Ondansetron Odt [Zofran Odt] 4 mg PO Q8HR PRN #10 tab 11/25/18 Allergies Allergy/AdvReac Type Severity Reaction Status Date / Time Penicillins Allergy Anaphylaxis Verified 11/25/18 17:47 Review of Systems ROS Statement: Those systems with pertinent positive or pertinent negative responses have been documented in the HPI. ROS Other: All systems not noted in ROS Statement are negative. Past Medical History Additional Past Medical History / Comment(s): IBS History of Any Multi-Drug Resistant Organisms: None Reported Past Surgical History: Section Additional Past Surgical History / Comment(s): IBS Past Psychological History: No Psychological Hx Reported Smoking Status: Current every day smoker Past Alcohol Use History: Occasional Past Drug Use History: None Reported - Past Family History Sister(s) Additional Family Medical History / Comment(s): Sister with a history of hypertrophic cardiomyopathy General Exam General appearance: alert, in no apparent distress Head exam: Present: atraumatic, normocephalic, normal inspection Eye exam: Present: normal appearance, PERRL, EOMI. Absent: scleral icterus, conjunctival injection, periorbital swelling ENT exam: Present: normal exam, mucous membranes moist Neck exam: Present: normal inspection. Absent: tenderness, meningismus, lymphadenopathy Respiratory exam: Present: normal lung sounds bilaterally. Absent: respiratory distress, wheezes, rales, rhonchi, stridor Cardiovascular Exam: Present: normal rhythm, tachycardia, normal heart sounds. Absent: systolic murmur, diastolic murmur, rubs, gallop, clicks GI/Abdominal exam: Present: soft, normal bowel sounds. Absent: distended, tenderness, guarding, rebound, rigid Extremities exam: Present: normal inspection, full ROM, normal capillary refill. Absent: tenderness, pedal edema, joint swelling, calf tenderness Back exam: Present: normal inspection Neurological exam: Present: alert, oriented X3, CN II-XII intact Psychiatric exam: Present: normal affect, normal mood Skin exam: Present: warm, dry, intact, normal color. Absent: rash Course Vital Signs 02/26/19 11:58 Temperature 99.1 F Pulse Rate 109 H Respiratory 22 Rate Blood Pressure 131/82 O2 Sat by Pulse 98 Oximetry - Reevaluation(s) Reevaluation #1: 02/26/19 13:50 Medical record is reviewed Reevaluation #2: 02/26/19 13:50 Patient does have improved pain control currently Medical Decision Making - Medical Decision Making 28 female the ER the abdominal pain, ruptured ovarian cyst. CT is negative. Patient can be discharged - Lab Data Result diagrams: 02/26/19 12:37 02/26/19 12:37 Lab Results 02/26/19 02/26/19 02/26/19 Range/Units 12:37 12:37 12:37 WBC 5.2 (3.8-10.6) k/uL RBC 4.66 (3.80-5.40) m/uL Hgb 11.9 (11.4-16.0) gm/dL Hct 36.2 (34.0-46.0) % MCV 77.7 L (80.0-100.0) fL MCH 25.5 (25.0-35.0) pg MCHC 32.8 (31.0-37.0) g/dL RDW 16.4 H (11.5-15.5) % Plt Count 225 (150-450) k/uL Neutrophils % 73 % Lymphocytes % 17 % Monocytes % 7 % Eosinophils % 1 % Basophils % 0 % Neutrophils # 3.8 (1.3-7.7) k/uL Lymphocytes # 0.9 L (1.0-4.8) k/uL Monocytes # 0.4 (0-1.0) k/uL Eosinophils # 0.0 (0-0.7) k/uL Basophils # 0.0 (0-0.2) k/uL Anisocytosis Slight Microcytosis Slight Sodium 137 (137-145) mmol/L Potassium 3.9 (3.5-5.1) mmol/L Chloride 106 (98-107) mmol/L Carbon Dioxide 22 (22-30) mmol/L Anion Gap 9 mmol/L BUN 7 (7-17) mg/dL Creatinine 0.63 (0.52-1.04) mg/dL Est GFR (CKD-EPI)AfAm >90 (>60 ml/min/1.73 sqM) Est GFR (CKD-EPI)NonAf >90 (>60 ml/min/1.73 sqM) Glucose 82 (74-99) mg/dL Plasma Lactic Acid [place] (0.7-2.0) mmol/L Calcium 9.1 (8.4-10.2) mg/dL Total Bilirubin 0.4 (0.2-1.3) mg/dL AST 15 (14-36) U/L ALT 23 (9-52) U/L Alkaline Phosphatase 75 (38-126) U/L Total Protein 6.9 (6.3-8.2) g/dL Albumin 4.0 (3.5-5.0) g/dL Amylase 56 (30-110) U/L Lipase 67 (23-300) U/L Urine Color Urine Appearance (Clear) Urine pH (5.0-8.0) Ur Specific [place] (1.001-1.035) Urine Protein (Negative) Urine Glucose (UA) (Negative) Urine Ketones (Negative) Urine Blood (Negative) Urine Nitrite (Negative) Urine Bilirubin (Negative) Urine Urobilinogen (<2.0) mg/dL Ur Leukocyte Esterase (Negative) Urine RBC (0-5) /hpf Urine WBC (0-5) /hpf Ur Squamous Epith Cells (0-4) /hpf Urine Bacteria (None) /hpf Urine Mucus (None) /hpf Urine HCG, Qual Not Detected (Not Detectd) 02/26/19 02/26/19 Range/Units 12:37 12:37 WBC (3.8-10.6) k/uL RBC (3.80-5.40) m/uL Hgb (11.4-16.0) gm/dL Hct (34.0-46.0) % MCV (80.0-100.0) fL MCH (25.0-35.0) pg MCHC (31.0-37.0) g/dL RDW (11.5-15.5) % Plt Count (150-450) k/uL Neutrophils % % Lymphocytes % % Monocytes % % Eosinophils % % Basophils % % Neutrophils # (1.3-7.7) k/uL Lymphocytes # (1.0-4.8) k/uL Monocytes # (0-1.0) k/uL Eosinophils # (0-0.7) k/uL Basophils # (0-0.2) k/uL Anisocytosis Microcytosis Sodium (137-145) mmol/L Potassium (3.5-5.1) mmol/L Chloride (98-107) mmol/L Carbon Dioxide (22-30) mmol/L Anion Gap mmol/L BUN (7-17) mg/dL Creatinine (0.52-1.04) mg/dL Est GFR (CKD-EPI)AfAm (>60 ml/min/1.73 sqM) Est GFR (CKD-EPI)NonAf (>60 ml/min/1.73 sqM) Glucose (74-99) mg/dL Plasma Lactic Acid [place] 0.7 (0.7-2.0) mmol/L Calcium (8.4-10.2) mg/dL Total Bilirubin (0.2-1.3) mg/dL AST (14-36) U/L ALT (9-52) U/L Alkaline Phosphatase (38-126) U/L Total Protein (6.3-8.2) g/dL Albumin (3.5-5.0) g/dL Amylase (30-110) U/L Lipase (23-300) U/L Urine Color Yellow Urine Appearance Cloudy H (Clear) Urine pH 6.0 (5.0-8.0) Ur Specific [place] 1.016 (1.001-1.035) Urine Protein Negative (Negative) Urine Glucose (UA) Negative (Negative) Urine Ketones Negative (Negative) Urine Blood Negative (Negative) Urine Nitrite Negative (Negative) Urine Bilirubin Negative (Negative) Urine Urobilinogen 3.0 (<2.0) mg/dL Ur Leukocyte Esterase Moderate H (Negative) Urine RBC 1 (0-5) /hpf Urine WBC 3 (0-5) /hpf Ur Squamous Epith Cells 5 H (0-4) /hpf Urine Bacteria Rare H (None) /hpf Urine Mucus Rare H (None) /hpf Urine HCG, Qual (Not Detectd) - Radiology Data Radiology results: report reviewed (CT abdomen pelvis positive for ruptured ovarian), image reviewed Disposition Clinical Impression: Ruptured ovarian cyst Disposition: HOME SELF-CARE Condition: Good Instructions (If sedation given, give patient instructions): Ovarian Cyst (ED), Ruptured Ovarian Cyst (ED) Is patient prescribed a controlled substance at d/c from ED?: No Referrals: Natalia Busch MD [Primary Care Provider] - 1-2 days
--- NOTE | 2019-02-26 14:12 | CT ---
EXAMINATION TYPE: CT abdomen pelvis w con DATE OF EXAM: 02/26/2019 COMPARISON: 05/11/2012 HISTORY: Right sided flank and Abdominal pain with nausea and vomiting CT DLP: 891 mGycm CONTRAST: CT scan of the abdomen and pelvis is performed without Oral Contrast and with IV Contrast, patient in jected with 100 mL of Isovue 300. FINDINGS: LUNG BASES-: No visible nodule. No infiltrate. LIVER/GB: No calcified gallstones. No space occupying hepatic lesion. Biliary tree is of normal ca liber. PANCREAS: No inflammation. No distinct mass. SPLEEN: No splenic enlargement. No lesion seen. ADRENALS: No nodule. No thickening. KIDNEYS/BLADDER: No hydronephrosis. No nephrolithiasis. No distinct renal mass. Urinary bladder g rossly unremarkable. BOWEL: Normal appendix. Normal bowel caliber. No inflammation. GENITAL ORGANS: Septated left ovarian cyst measuring 3.4 cm greatest dimension. Small amount of free fluid within the right adnexal region. Uterus is unremarkable. LYMPH NODES: No greater than 1cm abdominal or pelvic lymph nodes are appreciated. AORTA: No significant abnormality. OSSEOUS STRUCTURES: No significant abnormality is seen. OTHER: No significant additional abnormality is seen. IMPRESSION: 1. Suspect a ruptured right ovarian cyst with small amount of fluid right adnexa. 2. Septated left ovarian cyst/left para adnexal cyst noted
[2019-02-26 14:52] VITALS: BP 127/66; PULSE 93; RESP 18; TEMP 97.9
== END 2019-02-26 14:52 | disposition home or self-care (01) ==
LOC: EC 11:41
DX: N83.202 Unspecified ovarian cyst, left side (principal); F17.200 Nicotine dependence, unspecified, uncomplicated; Z88.0 Allergy status to penicillin
CPT/HCPCS: 36415; 80053; 82150; 83605; 83690; 85025; 81001; 81025; 87086; 74177; 99284; 96374; 96361 ×2; J2405; Q9967

== ENCOUNTER 2022-09-28 09:34 | Emergency (ER) | payer OTHER ==
[2022-09-28 09:42] VITALS: TEMP 98.4
[2022-09-28] MEDS ORDERED: ASPIRIN 81 MG PO STA (09:58)
--- NOTE | 2022-09-28 10:16 | ED ---
Chest Pain HPI - General Chief Complaint: Chest Pain Stated Complaint: chest pain Time Seen by Provider: 09/28/22 09:43 Source: patient, RN notes reviewed Mode of arrival: ambulatory Limitations: no limitations - History of Present Illness Initial Comments: This a 32-year-old female presents emergency Department chief complaint of left- sided chest pain. Patient states is dull achy pain started a few hours ago. Patient states it waxes and wanes. Nothing really makes it feel better or worse at this time. Patient states she had some sort of infection that causes pain like this at age 17 patient is unsure what this was. Patient denies any fevers chills and night sweats no IV drug use. Patient denies any prior cardiac disease denies hypertension hyperlipidemia no fever no cough or cold like symptoms no headache dizziness no abdominal pain - Related Data Home Medications Medication Instructions Recorded Confirmed Ibuprofen [Motrin Ib] 400 mg PO Q6H PRN 06/07/18 11/25/18 Previous Rx's Medication Instructions Recorded Ondansetron Odt [Zofran Odt] 4 mg PO Q8HR PRN #10 tab 11/25/18 Allergies Allergy/AdvReac Type Severity Reaction Status Date / Time Penicillins Allergy Anaphylaxis Verified 09/28/22 09:42 Review of Systems ROS Statement: Those systems with pertinent positive or pertinent negative responses have been documented in the HPI. ROS Other: All systems not noted in ROS Statement are negative. EKG Findings - EKG Comments: EKG Findings:: EKG performed at 9:46 this was interpreted by me and shows sinus rhythm rate of 95 MI 147 QRS 86 QT/QTC 342/394 Past Medical History Additional Past Medical History / Comment(s): IBS History of Any Multi-Drug Resistant Organisms: None Reported Past Surgical History: Section Additional Past Surgical History / Comment(s): IBS Past Psychological History: No Psychological Hx Reported Smoking Status: Vaper Past Alcohol Use History: Occasional Past Drug Use History: None Reported - Past Family History Sister(s) Additional Family Medical History / Comment(s): Sister with a history of hypertrophic cardiomyopathy General Exam Limitations: no limitations General appearance: alert, in no apparent distress Head exam: Present: atraumatic, normocephalic, normal inspection Neck exam: Present: normal inspection, full ROM. Absent: tenderness, meningismus, lymphadenopathy Respiratory exam: Present: normal lung sounds bilaterally. Absent: respiratory distress, wheezes, rales, rhonchi, stridor Cardiovascular Exam: Present: regular rate, normal rhythm, normal heart sounds. Absent: systolic murmur, diastolic murmur, rubs, gallop, clicks GI/Abdominal exam: Present: soft, normal bowel sounds. Absent: distended, tenderness, guarding, rebound, rigid Neurological exam: Present: alert, oriented X3, CN II-XII intact Skin exam: Present: warm, dry, intact, normal color. Absent: rash Course Vital Signs 09/28/22 09:39 Temperature 98.4 F Pulse Rate 95 Respiratory 20 Rate Blood Pressure 122/80 O2 Sat by Pulse 100 Oximetry Chest Pain MDM - MDM 32-year-old presented for atypical chest pain Symptoms. Symptoms have been present for several hours. Patient to for including labs, CT of the chest, x- ray with no acute findings. Patient states it's improved at this time we discharged in stable condition return parameters were discussed. Disposition Clinical Impression: Atypical chest pain Disposition: HOME SELF-CARE Condition: Stable Instructions (If sedation given, give patient instructions): Chest Pain (ED) Additional Instructions: Please return to the Emergency Department if symptoms worsen or any other concerns. Is patient prescribed a controlled substance at d/c from ED?: No Referrals: Natalia Busch MD [Primary Care Provider] - 1-2 days Time of Disposition: 12:02
[2022-09-28 10:22] LABS: Basophils % (A) 0 %; Eosinophils # (A) 0.1 k/uL (0-0.7); Eosinophils % (A) 2 %; HCT 34.3 % (34.0-46.0); HGB 10.7 gm/dL (11.4-16.0); Hypochromasia Marked; Lymphocytes # (A) 2.4 k/uL (1.0-4.8); Lymphocytes % (A) 32 %; MCH 23.5 pg (25.0-35.0); MCHC 31.1 g/dL (31.0-37.0); MCV 75.7 fL (80.0-100.0); Mean Platelet Volume 7.7; Microcytosis Slight; Monocytes # (A) 0.6 k/uL (0-1.0); Monocytes % (A) 8 %; Neutrophils # (A) 4.1 k/uL (1.3-7.7); Neutrophils % (A) 55 %; Platelet Count 364 k/uL (150-450); RBC 4.53 m/uL (3.80-5.40); RDW 15.5 % (11.5-15.5); WBC 7.4 k/uL (3.8-10.6)
[2022-09-28 10:36] LABS: ALT 19 U/L (4-34); AST 23 U/L (14-36); African American GFR (CKD) >90 (>60 ml/min/1.73 sqM); Albumin 4.9 g/dL (3.5-5.0); Alkaline Phosphatase 62 U/L (38-126); Anion Gap 10 mmol/L; Blood Urea Nitrogen 3 mg/dL (7-17); Calcium 9.3 mg/dL (8.4-10.2); Carbon Dioxide 23 mmol/L (22-30); Chloride 106 mmol/L (98-107); Glucose 85 mg/dL (74-99); Lipase 105 U/L (23-300); Magnesium 1.9 mg/dL (1.6-2.3); Non-African American GFR(CKD) >90 (>60 ml/min/1.73 sqM); Potassium 3.7 mmol/L (3.5-5.1); Sodium 139 mmol/L (137-145); Total Bilirubin 0.5 mg/dL (0.2-1.3); Total Protein 8.1 g/dL (6.3-8.2)
[2022-09-28 10:56] LABS: Partial Thromboplastin Time 22.1 sec (22.0-30.0); Prothrombin Time 10.9 sec (9.0-12.0)
--- NOTE | 2022-09-28 11:06 | XR ---
EXAMINATION TYPE: XR chest 2V DATE OF EXAM: 09/28/2022 COMPARISON: 06/07/2018 INDICATION: Chest pain TECHNIQUE: Frontal and lateral views of the chest are obtained. FINDINGS: The heart size is normal. The pulmonary vasculature is normal. The lungs are clear. IMPRESSION: 1. No acute pulmonary process.
--- NOTE | 2022-09-28 12:10 | CT ---
EXAMINATION TYPE: CT chest angio for PE CT DLP: 400.6 mGycm, Automated exposure control for dose reduction was used. DATE OF EXAM: 09/28/2022 11:52 AM COMPARISON: Chest radiograph from same day. CLINICAL INDICATION:Female, 32 years old with history of cp; chest pain TECHNIQUE/CONTRAST: CTA scan of the thorax is performed with IV Contrast, patient injected with 100 mL of Isovue 370, pul monary embolism protocol. MIP images are created and reviewed. FINDINGS: Pulmonary Artery: There is no evidence for a filling defect within the pulmonary vasculature to sugge st acute pulmonary embolism. The pulmonary artery is of normal size. Lungs/Pleura: No evidence of focal consolidation, pleural effusion or pneumothorax. Airway: Large airways are patent. Heart: Heart is within normal limits for size.. Vasculature: No evidence of aortic aneurysm. Mediastinum: No gross evidence of adenopathy. Musculoskeletal: No acute osseous abnormalities Soft Tissues: Unremarkable. Lower neck: No significant findings. Upper Abdomen: No significant findings. IMPRESSION: No evidence of pulmonary embolism.
[2022-09-28 12:34] VITALS: BP 123/91; PULSE 73; RESP 15
== END 2022-09-28 12:34 | disposition home or self-care (01) ==
LOC: EC 09:34
DX: R07.89 Other chest pain (principal); F17.290 Nicotine dependence, other tobacco product, uncomplicated; Z88.0 Allergy status to penicillin
CPT/HCPCS: 36415; 93005; 85379; 80053; 83690; 83735; 84484; 85025; 85610; 85730; 71046; 71275; 99285; Q9967

== ENCOUNTER 2022-10-25 09:09 | Emergency (ER) | payer OTHER ==
[2022-10-25 09:14] VITALS: TEMP 98.7
[2022-10-25] MEDS ORDERED: KETOROLAC 15 MG/ML 1 ML VIAL IVP STA (09:41)
--- NOTE | 2022-10-25 09:47 | ED ---
General Adult HPI - General Chief complaint: Chest Pain Stated complaint: chest pain Time Seen by Provider: 10/25/22 09:19 Source: patient, RN notes reviewed, old records reviewed Mode of arrival: ambulatory Limitations: no limitations - History of Present Illness Initial comments: This is a 32-year-old female who presents emergency department complaining of chest pain in the left upper chest. Patient states radiates to her back per patient states this episode started last night and it is a sharp pain but then it remains as a constant ache. Patient states she's been having this pain for the last few years. Patient states she was here multiple got a CAT scan of her chest was normal. Patient states she seen her primary medical care doctor tejinder chisholme times but is never center for a stress test or any other work up with cardiology. Patient denies any fever chills or cough. Patient denies any pain with movement. Patient denies shortness of breath. Patient denies any headache patient denies numbness weakness. Patient denies lightheadedness. Patient denies any swelling to her legs or calf tenderness. - Related Data Home Medications Medication Instructions Recorded Confirmed No Known Home Medications 10/25/22 10/25/22 Allergies Allergy/AdvReac Type Severity Reaction Status Date / Time Penicillins Allergy Anaphylaxis Verified 10/25/22 10:50 Review of Systems ROS Statement: Those systems with pertinent positive or pertinent negative responses have been documented in the HPI. ROS Other: All systems not noted in ROS Statement are negative. Past Medical History Additional Past Medical History / Comment(s): IBS History of Any Multi-Drug Resistant Organisms: None Reported Past Surgical History: Section Additional Past Surgical History / Comment(s): IBS Past Psychological History: No Psychological Hx Reported Smoking Status: Vaper Past Alcohol Use History: Occasional Past Drug Use History: None Reported - Past Family History Sister(s) Additional Family Medical History / Comment(s): Sister with a history of hypertrophic cardiomyopathy General Exam - General Exam Comments Initial Comments: GENERAL: Patient is well-developed and well-nourished. Patient is nontoxic and well- hydrated and is in mild distress. ENT: Neck is soft and supple. No significant lymphadenopathy is noted. Oropharynx is clear. Moist mucous membranes. Neck has full range of motion without eliciting any pain. EYES: The sclera were anicteric and conjunctiva were pink and moist. Extraocular movements were intact and pupils were equal round and reactive to light. Eyelids were unremarkable. PULMONARY: Unlabored respirations. Good breath sounds bilaterally. No audible rales rhonchi or wheezing was noted. CARDIOVASCULAR: There is a regular rate and rhythm without any murmurs gallops or rubs. ABDOMEN: Soft and nontender with normal bowel sounds. SKIN: Skin is clear with no lesions or rashes and otherwise unremarkable. NEUROLOGIC: Patient is alert and oriented x3. Cranial nerves II through XII are grossly intact. Motor and sensory are also intact. Normal speech, volume and content. Symmetrical smile. MUSCULOSKELETAL: Normal extremities with adequate strength and full range of motion. LYMPHATICS: No significant lymphadenopathy is noted PSYCHIATRIC: Normal psychiatric evaluation. Limitations: no limitations Course Vital Signs 10/25/22 10/25/22 10/25/22 09:12 10:03 11:23 Temperature 98.7 F Pulse Rate 95 79 75 Respiratory 20 18 18 Rate Blood Pressure 108/73 104/74 105/69 O2 Sat by Pulse 100 100 99 Oximetry Medical Decision Making - Medical Decision Making EKG was interpreted by me. EKG shows sinus rhythm at 80 bpm WI interval is 147 QRSs 83 QT interval 3 5070 QTC is 393. Patient's EKG shows no ST segment elevation or depression. Chest x-ray was interpreted by me. Chest x-ray shows no acute abnormality. - Lab Data Result diagrams: 10/25/22 09:59 10/25/22 09:59 Lab Results 10/25/22 10/25/22 10/25/22 Range/Units 09:59 09:59 09:59 WBC 5.0 (3.8-10.6) k/uL RBC 4.40 (3.80-5.40) m/uL Hgb 10.0 L (11.4-16.0) gm/dL Hct 33.0 L (34.0-46.0) % MCV 75.0 L (80.0-100.0) fL MCH 22.7 L (25.0-35.0) pg MCHC 30.3 L (31.0-37.0) g/dL RDW 16.2 H (11.5-15.5) % Plt Count 309 (150-450) k/uL MPV 7.8 Neutrophils % 47 % Lymphocytes % 40 % Monocytes % 8 % Eosinophils % 2 % Basophils % 1 % Neutrophils # 2.4 (1.3-7.7) k/uL Lymphocytes # 2.0 (1.0-4.8) k/uL Monocytes # 0.4 (0-1.0) k/uL Eosinophils # 0.1 (0-0.7) k/uL Basophils # 0.0 (0-0.2) k/uL Hypochromasia Marked Anisocytosis Slight Microcytosis Slight Sodium 138 (137-145) mmol/L Potassium 4.2 (3.5-5.1) mmol/L Chloride 108 H (98-107) mmol/L Carbon Dioxide 24 (22-30) mmol/L Anion Gap 6 mmol/L BUN 5 L (7-17) mg/dL Creatinine 0.74 (0.52-1.04) mg/dL Est GFR (CKD-EPI)AfAm >90 (>60 ml/min/1.73 sqM) Est GFR (CKD-EPI)NonAf >90 (>60 ml/min/1.73 sqM) Glucose 82 (74-99) mg/dL Calcium 8.9 (8.4-10.2) mg/dL Magnesium 2.1 (1.6-2.3) mg/dL Total Bilirubin 0.4 (0.2-1.3) mg/dL AST 15 (14-36) U/L ALT 18 (4-34) U/L Alkaline Phosphatase 65 (38-126) U/L Troponin I <0.012 (0.000-0.034) ng/mL Total Protein 7.2 (6.3-8.2) g/dL Albumin 4.2 (3.5-5.0) g/dL Disposition Clinical Impression: Chest wall syndrome, Anemia Disposition: HOME SELF-CARE Instructions (If sedation given, give patient instructions): Chest Pain (ED) Additional Instructions: Patient is to follow-up with her primary medical care doctor soon as possible. Patient should follow up with cardiology as well. Patient should return if symptoms worsen or there are new symptoms. Is patient prescribed a controlled substance at d/c from ED?: No Referrals: Natalia Busch MD [Primary Care Provider] - 1-2 days Time of Disposition: 11:04
[2022-10-25 10:04] VITALS: RESP 18
--- NOTE | 2022-10-25 10:08 | XR ---
EXAMINATION TYPE: XR chest 2V DATE OF EXAM: 10/25/2022 COMPARISON: 09/28/2022 HISTORY: Chest pain TECHNIQUE: Frontal and lateral views of the chest are obtained. FINDINGS: There is no focal air space opacity. No evidence for pneumothorax. No pleural effusion. The cardiac silhouette size is within normal limits. The osseous structures are grossly intact. IMPRESSION: 1. No acute cardiopulmonary process.
[2022-10-25 10:16] LABS: Anisocytosis Slight; Basophils % (A) 1 %; Eosinophils # (A) 0.1 k/uL (0-0.7); Eosinophils % (A) 2 %; Hypochromasia Marked; Lymphocytes % (A) 40 %; MCH 22.7 pg (25.0-35.0); MCHC 30.3 g/dL (31.0-37.0); Mean Platelet Volume 7.8; Microcytosis Slight; Monocytes # (A) 0.4 k/uL (0-1.0); Monocytes % (A) 8 %; Neutrophils # (A) 2.4 k/uL (1.3-7.7); Neutrophils % (A) 47 %; Platelet Count 309 k/uL (150-450); RDW 16.2 % (11.5-15.5)
[2022-10-25 10:22] LABS: ALT 18 U/L (4-34); AST 15 U/L (14-36); African American GFR (CKD) >90 (>60 ml/min/1.73 sqM); Albumin 4.2 g/dL (3.5-5.0); Alkaline Phosphatase 65 U/L (38-126); Anion Gap 6 mmol/L; Blood Urea Nitrogen 5 mg/dL (7-17); Calcium 8.9 mg/dL (8.4-10.2); Carbon Dioxide 24 mmol/L (22-30); Chloride 108 mmol/L (98-107); Glucose 82 mg/dL (74-99); Magnesium 2.1 mg/dL (1.6-2.3); Non-African American GFR(CKD) >90 (>60 ml/min/1.73 sqM); Potassium 4.2 mmol/L (3.5-5.1); Sodium 138 mmol/L (137-145); Total Bilirubin 0.4 mg/dL (0.2-1.3); Total Protein 7.2 g/dL (6.3-8.2)
[2022-10-25 11:24] VITALS: BP 105/69; PULSE 75
== END 2022-10-25 11:25 | disposition home or self-care (01) ==
LOC: EC 09:09
DX: R07.1 Chest pain on breathing (principal); D64.9 Anemia, unspecified; F17.290 Nicotine dependence, other tobacco product, uncomplicated; Z88.0 Allergy status to penicillin
CPT/HCPCS: 36415; 93005; 80053; 83735; 84484; 85025; 71046; 99285; 96374; J1885